=== PATIENT | female | born 1955 | race Caucasian/White ===

== ENCOUNTER 2017-10-31 16:34 | Emergency (ER) | payer MEDICAID, OTHER ==
[2017-10-31 16:46] VITALS: BP 141/83
--- NOTE | 2017-10-31 17:55 | XRAY Preliminary Report ---
Exam: XR KNEE 3 VIEW LT IMPRESSION: 1. No evidence of acute fracture or dislocation. 2. 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 There may be a suprapatellar joint effusion. 3. There are remote tibial and fibular fractures. [facility] SITE ID: [id number]
--- NOTE | 2017-10-31 18:05 | XRAY Report ---
EXAM: LEFT KNEE RADIOGRAPHY EXAM DATE: 10/31/2017 05:47 PM. CLINICAL HISTORY: Left knee pain and swelling. COMPARISON: None. TECHNIQUE: 3 views. FINDINGS: Bones: There are remote proximal tibia and fibula fractures. No evidence of acute fracture. Joints: No evidence of dislocation. There is moderate tricompartment degenerative disease. Soft Tissues: No unexpected soft tissue findings. IMPRESSION: 1. No evidence of acute fracture or dislocation. 2. 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 There may be a suprapatellar joint effusion. 3. There are remote tibial and fibular fractures. [facility] Referring Provider Line: [phone] SITE ID: [id number]
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
== END 2017-10-31 18:28 | disposition home or self-care (01) ==
LOC: ED 16:34
DX: M25.462 Effusion, left knee (principal)
CPT/HCPCS: 99282; 99283

== ENCOUNTER 2018-01-07 13:35 | Emergency (ER) | payer MEDICAID ==
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
[2018-01-07 16:50] VITALS: BP 121/83
--- NOTE | 2018-01-07 17:03 | Ultrasound Preliminary Report ---
Exam: US DUPLEX EXT VEINS LEFT IMPRESSION: No evidence for deep venous thrombosis. [facility] SITE ID: [id number]
--- NOTE | 2018-01-07 17:03 | Ultrasound Report ---
EXAM: LEFT LOWER EXTREMITY VENOUS ULTRASOUND EXAM DATE: 01/07/2018 04:43 PM. CLINICAL HISTORY: Calf swelling and pain. COMPARISON: Left knee films 10/31/2017. TECHNIQUE: Real-time sonographic vascular imaging was performed by the alternative financing specialist through the lower extremity utilizing both color-flow and Doppler spectral analysis. 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 FINDINGS: Common Femoral Vein (CFV): Normal. CFV-GSV Junction: Normal. Profunda Femoral Vein (PFV): Normal. Femoral Vein (FV) Prox: Normal. Femoral Vein (FV) Mid: Normal. Femoral Vein (FV) Dist: Normal. Popliteal Vein: Normal. Posterior Tibial Veins: Normal. Peroneal Veins: Normal. Contralateral Side CFV: Normal. Other: None. IMPRESSION: No evidence for deep venous thrombosis. [facility] Referring Provider Line: [phone] SITE ID: [id number]
== END 2018-01-07 16:54 | disposition home or self-care (01) ==
LOC: ED 13:35
DX: M79.662 Pain in left lower leg (principal)
CPT/HCPCS: 99283

== ENCOUNTER 2019-12-09 20:18 | Outpatient (CLI) | payer SELFPAY | END 2019-12-09 20:19 | disposition E | LOC: EMS 20:18 | PROVIDERS: ATTEND Surgery ==